=== PATIENT | male | born 1935 | race Caucasian/White ===

== ENCOUNTER 2019-12-16 09:32 | Inpatient (IN) | payer MEDICARE ==
[~2019-12-16] VITALS: Ht 172.7 cm; Wt 67.4 kg
[~2019-12-16 09:32] MED LIST: ALLO300T PO; ASPI-515 PO; ATOR40TA78 PO; CARV3.1212 PO; CHOL200024 PO; CLOP75TA52 PO; FERR325T18 PO; HYDROCHLOROTH12.5 MG PO; LEVO150T5 PO; LEVO200T5 PO; LISI-170 PO; NIAC500T9 PO; PANT40TA5 PO
[2019-12-16] MEDS ORDERED: VANCOMYCIN PER PHARMACY MC ONE (10:00)
[2019-12-16] MEDS ORDERED: SODIUM CHLORIDE FLUSH 10ML SYR IVF ONE (10:00)
[2019-12-16] MEDS ORDERED: VANCOMYCIN 1,200 MG in SODIUM CHLORIDE 0.9% 250 ML IV ONE (10:00)
--- NOTE | 2019-12-16 10:38 | NUR ---
lab to bedside to draw blood cultures, straight cath performed, pt tolerated well. laying in bed, respirations even and unlabored, no signs of distress. will continue to monitor, call light within reach.
--- NOTE | 2019-12-16 11:02 | NUR ---
ANNIE, , IN [facility]ENICE, ([phone]. OKAY TO GIVE UPDATES.
[2019-12-16 11:09] LABS: MICROSCOPIC AUTO
[2019-12-16 11:10] LABS: CULTURE INDICATED? NO
[2019-12-16] MEDS ORDERED: CARV6.2512 PO (11:24)
[2019-12-16] MEDS ORDERED: TAMS-11 PO (11:24)
[2019-12-16] MEDS ORDERED: ALLO300T PO (11:24)
[2019-12-16] MEDS ORDERED: ZOLP5TAB6 PO (11:24)
[2019-12-16] MEDS ORDERED: CLOP75TA PO (11:24)
[2019-12-16] MEDS ORDERED: ACETAMINOPHEN 325 MG TABLET PO PRN ×3 (11:30→19:30)
--- NOTE | 2019-12-16 11:43 | NUR ---
PT LAYING IN BED, RESPIRATIONS EVEN AND UNLABORED, NO SIGNS OF DISTRESS, WILL CONTINUE TO MONITOR.
--- NOTE | 2019-12-16 11:48 | NUR ---
REPORT GIVEN TO CRISTIAN COCHRNA.
[2019-12-16 12:00] LABS: INTERNATIONAL NORMALIZED RATIO 1.03 (0.93-1.1); PROTHROMBIN TIME 10.9 Seconds (9.6-11.5)
[2019-12-16 12:01] LABS: BASOPHILS # (AUTO) 0.03 x10^3/uL (0-0.1); BASOPHILS % (AUTO) 0 % (0-1); EOSINOPHILS % (AUTO) 0 % (1-7); LYMPHOCYTES # (AUTO) 1.35 x10^3/uL (1-3.4); LYMPHOCYTES % (AUTO) 14 % (22-44); MD NO; MEAN CORPUSCULAR HEMOGLOBIN 31.2 pg (27.5-34.5); MEAN CORPUSCULAR HGB CONC 33.1 g/dL (33.2-36.2); MEAN CORPUSCULAR VOLUME 94.2 fL (81-97); MEAN PLATELET VOLUME 8.1 fL (7.4-10.4); MONOCYTES # (AUTO) 0.77 x10^3/uL (0.2-0.8); MONOCYTES % (AUTO) 8 % (2-9); NEUTROPHILS # (AUTO) 7.71 x10^3/uL (1.8-6.8); NEUTROPHILS % (AUTO) 78 % (42-75); PLATELET COUNT 282 x10^3/uL (130-400); RED BLOOD COUNT 3.58 x10^6/uL (4.38-5.82); RED CELL DISTRIBUTION WIDTH 15.2 % (9.4-14.8)
[2019-12-16 12:06] LABS: ANION GAP 8 mmol/L (5-15); CALCIUM 8.3 mg/dL (8.5-10.1); CHLORIDE 103 mmol/L (98-107); CREATININE 0.56 mg/dL (0.7-1.3)
[2019-12-16 12:08] LABS: CREATINE KINASE, TOTAL 145 U/L (39-308)
[2019-12-16 12:10] VITALS: BP 160/63
[2019-12-16 12:46] VITALS: BP 153/55
[2019-12-16] MEDS ORDERED: MORPHINE SULFATE 4 MG/ML, 1ML IVPush PRN (14:30)
[2019-12-16] MEDS: DAPTOMYCIN 350 MG in SODIUM CHLORIDE 0.9% 100 ML IVPB SCH (14:35)
[2019-12-16] MEDS: HEPARIN 5,000 UNITS/ML, 1ML SQ SCH ×3 (14:37→23:57)
[2019-12-16] MEDS ORDERED: ONDANSETRON 2MG/ML, 2ML IV PRN ×2 (15:00→19:30)
[2019-12-16] MEDS ORDERED: PROMETHAZINE 25 MG/ML, 1ML IV PRN ×2 (15:00→19:30)
[2019-12-16] MEDS ORDERED: LABETALOL 5MG/ML, 20ML IV PRN ×2 (15:00→19:30)
[2019-12-16] MEDS ORDERED: OXYcodone 5 MG/5 ML ORAL.SOL UDC PO PRN ×2 (15:00→19:30)
[2019-12-16] MEDS ORDERED: hydrALAzine 20 MG/ML, 1ML IV PRN ×2 (15:00→19:30)
[2019-12-16] MEDS ORDERED: NEOSPORIN OINT, 15GM ONE (15:49)
[2019-12-16] MEDS ORDERED: FENTANYL PF 250 MCG/5ML ONE (16:44)
[2019-12-16] MEDS ORDERED: SUCCINYLCHOLINE 20 MG/ML, 10ML ONE (17:06)
[2019-12-16] MEDS ORDERED: CEFAZOLIN 1,000 MG ONE (17:06)
[2019-12-16] MEDS ORDERED: DEXAMETHASONE 4 MG/ML, 1ML ONE (17:06)
[2019-12-16] MEDS ORDERED: ROCURONIUM 10 MG/ML,10ML ONE (17:06)
[2019-12-16] MEDS ORDERED: PROPOFOL 10 MG/ML, 20ML ONE (17:06)
[2019-12-16] MEDS ORDERED: ONDANSETRON 2MG/ML, 2ML ONE (17:06)
[2019-12-16] MEDS ORDERED: VASOPRESSIN 20 UNIT/ML, 1ML ONE (17:22)
[2019-12-16] MEDS ORDERED: PROMETHAZINE 12.5 MG SUPP PR PRN (19:30)
[2019-12-16] MEDS ORDERED: ALBUTEROL SULFATE 2.5 MG/3 ML NPPB PRN (19:30)
[2019-12-16] MEDS ORDERED: ONDANSETRON ODT 8 MG PO PRN (19:30)
[2019-12-16] MEDS ORDERED: MIDAZOLAM 1 MG/ML, 2ML IV PRN (19:30)
[2019-12-16] MEDS ORDERED: HYDROmorphone 2 MG/ML, 1ML IVPush PRN (19:30)
[2019-12-16] MEDS ORDERED: DIAZEPAM 5 MG/ML, 2ML IVPush PRN (19:30)
[2019-12-16] MEDS ORDERED: EPHEDRINE 50 MG/ML, 1ML IVPush PRN (19:30)
[2019-12-16] MEDS ORDERED: MEPERIDINE/PF 25MG/ML,1ML IVPush PRN (19:30)
[2019-12-16] MEDS ORDERED: FENTANYL PF 100 MCG/2ML IV PRN (19:30)
[2019-12-16] MEDS ORDERED: HALOPERIDOL 5 MG/ML IV PRN (19:30)
[2019-12-16] MEDS ORDERED: OXYcodone 5 MG/5 ML ORAL.SOL UDC ONE (19:32)
[2019-12-16] MEDS ORDERED: FENTANYL PF 100 MCG/2ML ONE (19:32)
[2019-12-16] MEDS: FENTANYL PF 100 MCG/2ML IV PRN ×4 (19:36→19:55)
[2019-12-16] MEDS ORDERED: HYDROmorphone 1 MG/ML, 1ML INJ ONE (19:57)
[2019-12-16] MEDS: HYDROmorphone 2 MG/ML, 1ML IVPush PRN ×3 (20:01→20:16)
[2019-12-16 20:55] VITALS: BP 138/75
[2019-12-16] MEDS: LISINOPRIL 20 MG TABLET PO SCH (23:48)
[2019-12-16] MEDS: FERROUS SULFATE 325 MG TABLET PO SCH (23:49)
[2019-12-16] MEDS: NIACIN 500 MG TABLET.ER PO SCH (23:50)
[2019-12-16] MEDS: ATORVASTATIN 10 MG TABLET PO SCH (23:53)
[2019-12-16] MEDS: CARVEDILOL 3.125 MG TABLET PO SCH (23:53)
[2019-12-16] MEDS: ASPIRIN 81 MG TABLET EC PO SCH (23:54)
[2019-12-16] MEDS: ALLOPURINOL 300 MG TABLET PO SCH (23:54)
[2019-12-16] MEDS: CHOLECALCIFEROL 1,000 UNIT TABLET PO SCH (23:56)
[2019-12-17] VITALS (8 sets, daily range): BP systolic 62–146; BP diastolic 34–82
[2019-12-17] MEDS: HYDROcodone/APAP 5/325 TABLET PO PRN ×3 (00:23→20:31)
[2019-12-17 05:28] LABS: BASOPHILS # (AUTO) 0.01 x10^3/uL (0-0.1); BASOPHILS % (AUTO) 0 % (0-1); EOSINOPHILS % (AUTO) 0 % (1-7); LYMPHOCYTES # (AUTO) 0.74 x10^3/uL (1-3.4); LYMPHOCYTES % (AUTO) 9 % (22-44); MD NO; MEAN CORPUSCULAR HEMOGLOBIN 30.9 pg (27.5-34.5); MEAN CORPUSCULAR HGB CONC 32.7 g/dL (33.2-36.2); MEAN CORPUSCULAR VOLUME 94.6 fL (81-97); MEAN PLATELET VOLUME 7.4 fL (7.4-10.4); MONOCYTES # (AUTO) 0.53 x10^3/uL (0.2-0.8); MONOCYTES % (AUTO) 7 % (2-9); NEUTROPHILS # (AUTO) 6.77 x10^3/uL (1.8-6.8); NEUTROPHILS % (AUTO) 84 % (42-75); PLATELET COUNT 246 x10^3/uL (130-400); RED BLOOD COUNT 2.59 x10^6/uL (4.38-5.82); RED CELL DISTRIBUTION WIDTH 15.1 % (9.4-14.8)
[2019-12-17] MEDS: LEVOTHYROXINE 200 MCG TABLET PO SCH (06:40)
[2019-12-17] MEDS: NIACIN 500 MG TABLET.ER PO SCH ×2 (09:00→20:32)
[2019-12-17] MEDS ORDERED: TAMSULOSIN 0.4 MG CAP.ER.24H PO SCH (09:00)
[2019-12-17] MEDS: DOCUSATE 100 MG CAPSULE PO SCH ×2 (09:38→20:27)
[2019-12-17] MEDS: HYDROCHLOROTHIAZIDE 12.5 MG CAPSULE PO SCH (09:38)
[2019-12-17] MEDS: FERROUS SULFATE 325 MG TABLET PO SCH ×2 (09:38→20:28)
[2019-12-17] MEDS: LISINOPRIL 20 MG TABLET PO SCH ×2 (09:39→20:32)
[2019-12-17] MEDS: CLOPIDOGREL 75 MG TABLET PO SCH (09:39)
[2019-12-17] MEDS: CARVEDILOL 3.125 MG TABLET PO SCH ×2 (09:39→20:28)
[2019-12-17] MEDS: PANTOPRAZOLE 40MG TABLET PO SCH (09:39)
[2019-12-17] MEDS: CHOLECALCIFEROL 1,000 UNIT TABLET PO SCH ×2 (09:44→20:28)
[2019-12-17] MEDS: HEPARIN 5,000 UNITS/ML, 1ML SQ SCH ×2 (10:12→18:26)
[2019-12-17] MEDS: DAPTOMYCIN 350 MG in SODIUM CHLORIDE 0.9% 100 ML IVPB SCH (15:37)
[2019-12-17] MEDS: ATORVASTATIN 10 MG TABLET PO SCH (20:29)
[2019-12-17] MEDS: ALLOPURINOL 300 MG TABLET PO SCH (20:31)
[2019-12-17] MEDS: TAMSULOSIN 0.4 MG CAP.ER.24H PO SCH (20:31)
[2019-12-17] MEDS: ASPIRIN 81 MG TABLET EC PO SCH (20:31)
[2019-12-18 01:39] VITALS: BP 132/70
[2019-12-18] MEDS: HEPARIN 5,000 UNITS/ML, 1ML SQ SCH ×2 (02:01→09:52)
[2019-12-18] MEDS: HYDROcodone/APAP 5/325 TABLET PO PRN ×3 (04:38→19:57)
[2019-12-18] MEDS: LEVOTHYROXINE 200 MCG TABLET PO SCH (04:38)
[2019-12-18 05:57] LABS: BASOPHILS # (AUTO) 0.02 x10^3/uL (0-0.1); BASOPHILS % (AUTO) 0 % (0-1); EOSINOPHILS # (AUTO) 0.01 x10^3/uL (0-0.4); EOSINOPHILS % (AUTO) 0 % (1-7); LYMPHOCYTES # (AUTO) 1.21 x10^3/uL (1-3.4); LYMPHOCYTES % (AUTO) 19 % (22-44); MD NO; MEAN CORPUSCULAR HEMOGLOBIN 31.6 pg (27.5-34.5); MEAN CORPUSCULAR HGB CONC 33.2 g/dL (33.2-36.2); MEAN CORPUSCULAR VOLUME 95.2 fL (81-97); MEAN PLATELET VOLUME 7.4 fL (7.4-10.4); MONOCYTES # (AUTO) 0.72 x10^3/uL (0.2-0.8); MONOCYTES % (AUTO) 12 % (2-9); NEUTROPHILS % (AUTO) 69 % (42-75); PLATELET COUNT 251 x10^3/uL (130-400); RED BLOOD COUNT 2.43 x10^6/uL (4.38-5.82)
[2019-12-18 06:02] LABS: ANION GAP 8 mmol/L (5-15); CALCIUM 7.6 mg/dL (8.5-10.1); CHLORIDE 102 mmol/L (98-107); CREATININE 0.56 mg/dL (0.7-1.3)
[2019-12-18 07:13] VITALS: BP 139/56
[2019-12-18] MEDS: CLOPIDOGREL 75 MG TABLET PO SCH (08:02)
[2019-12-18] MEDS: FERROUS SULFATE 325 MG TABLET PO SCH ×2 (08:04→19:45)
[2019-12-18] MEDS: DOCUSATE 100 MG CAPSULE PO SCH ×2 (08:04→19:46)
[2019-12-18] MEDS: PANTOPRAZOLE 40MG TABLET PO SCH (08:05)
[2019-12-18] MEDS: LISINOPRIL 20 MG TABLET PO SCH ×2 (08:05→19:46)
[2019-12-18] MEDS: CARVEDILOL 3.125 MG TABLET PO SCH ×2 (08:05→19:46)
[2019-12-18] MEDS: NIACIN 500 MG TABLET.ER PO SCH ×2 (08:06→19:45)
[2019-12-18] MEDS: CHOLECALCIFEROL 1,000 UNIT TABLET PO SCH ×2 (08:06→19:48)
[2019-12-18] MEDS: HYDROCHLOROTHIAZIDE 12.5 MG CAPSULE PO SCH ×2 (08:06→08:08)
[2019-12-18] MEDS ORDERED: BISACODYL 10 MG SUPP PR PRN (10:30)
[2019-12-18] MEDS ORDERED: MAGNESIUM HYDROXIDE 8%, 30ML UDC PO PRN (10:30)
[2019-12-18] MEDS ORDERED: POLYETHYLENE GLYCOL 17 GM PACKET PO PRN (10:30)
[2019-12-18] MEDS: SODIUM CHLORIDE 0.9% 1,000 ML IV SCH (11:59)
[2019-12-18 12:25] VITALS: BP 100/62
[2019-12-18] MEDS: DAPTOMYCIN 350 MG in SODIUM CHLORIDE 0.9% 100 ML IVPB SCH (14:50)
[2019-12-18] MEDS: ALLOPURINOL 300 MG TABLET PO SCH (19:45)
[2019-12-18] MEDS: ATORVASTATIN 10 MG TABLET PO SCH (19:45)
[2019-12-18] MEDS: TAMSULOSIN 0.4 MG CAP.ER.24H PO SCH (19:45)
[2019-12-18] MEDS: ASPIRIN 81 MG TABLET EC PO SCH (19:45)
[2019-12-18 20:01] VITALS: BP 134/55
[2019-12-19] MEDS: HYDROcodone/APAP 5/325 TABLET PO PRN ×2 (00:58→20:55)
[2019-12-19] MEDS: SODIUM CHLORIDE 0.9% 1,000 ML IV SCH ×3 (00:59→20:41)
[2019-12-19 01:01] VITALS: BP 119/58
[2019-12-19] MEDS: LEVOTHYROXINE 200 MCG TABLET PO SCH (04:59)
[2019-12-19 06:34] LABS: BASOPHILS # (AUTO) 0.03 x10^3/uL (0-0.1); BASOPHILS % (AUTO) 1 % (0-1); EOSINOPHILS # (AUTO) 0.11 x10^3/uL (0-0.4); EOSINOPHILS % (AUTO) 2 % (1-7); LYMPHOCYTES # (AUTO) 1.24 x10^3/uL (1-3.4); LYMPHOCYTES % (AUTO) 22 % (22-44); MD NO; MEAN CORPUSCULAR HEMOGLOBIN 31.2 pg (27.5-34.5); MEAN CORPUSCULAR VOLUME 94.5 fL (81-97); MEAN PLATELET VOLUME 7.4 fL (7.4-10.4); MONOCYTES # (AUTO) 0.66 x10^3/uL (0.2-0.8); MONOCYTES % (AUTO) 12 % (2-9); NEUTROPHILS # (AUTO) 3.51 x10^3/uL (1.8-6.8); NEUTROPHILS % (AUTO) 63 % (42-75); PLATELET COUNT 297 x10^3/uL (130-400); RED BLOOD COUNT 2.49 x10^6/uL (4.38-5.82); RED CELL DISTRIBUTION WIDTH 14.9 % (9.4-14.8)
[2019-12-19 06:36] LABS: ANION GAP 7 mmol/L (5-15); CHLORIDE 106 mmol/L (98-107); CREATININE 0.54 mg/dL (0.7-1.3)
[2019-12-19 07:15] VITALS: BP 165/62
[2019-12-19] MEDS: MAGNESIUM HYDROXIDE 8%, 30ML UDC PO SCH (08:32)
[2019-12-19] MEDS: POLYETHYLENE GLYCOL 17 GM PACKET NG SCH (08:32)
[2019-12-19] MEDS: LISINOPRIL 20 MG TABLET PO SCH ×2 (08:32→20:40)
[2019-12-19] MEDS: NIACIN 500 MG TABLET.ER PO SCH ×2 (08:32→21:00)
[2019-12-19] MEDS: CARVEDILOL 3.125 MG TABLET PO SCH ×2 (08:32→20:39)
[2019-12-19] MEDS: DOCUSATE 100 MG CAPSULE PO SCH ×2 (08:32→20:39)
[2019-12-19] MEDS: CLOPIDOGREL 75 MG TABLET PO SCH (08:33)
[2019-12-19] MEDS: PANTOPRAZOLE 40MG TABLET PO SCH (08:33)
[2019-12-19] MEDS: FERROUS SULFATE 325 MG TABLET PO SCH ×2 (08:33→20:39)
[2019-12-19] MEDS: CHOLECALCIFEROL 1,000 UNIT TABLET PO SCH ×2 (08:33→21:00)
[2019-12-19] MEDS: DAPTOMYCIN 350 MG in SODIUM CHLORIDE 0.9% 100 ML IVPB SCH (14:45)
[2019-12-19 15:46] VITALS: BP 146/54
[2019-12-19 20:07] VITALS: BP 117/54
[2019-12-19] MEDS: ASPIRIN 81 MG TABLET EC PO SCH (20:38)
[2019-12-19] MEDS: ATORVASTATIN 10 MG TABLET PO SCH (20:40)
[2019-12-19] MEDS: ALLOPURINOL 300 MG TABLET PO SCH (20:41)
[2019-12-19] MEDS: TAMSULOSIN 0.4 MG CAP.ER.24H PO SCH (20:41)
[2019-12-20 02:09] VITALS: BP 129/55
[2019-12-20] MEDS: LEVOTHYROXINE 200 MCG TABLET PO SCH (05:00)
[2019-12-20 05:55] LABS: ANION GAP 9 mmol/L (5-15); CALCIUM 7.8 mg/dL (8.5-10.1); CHLORIDE 109 mmol/L (98-107); CREATININE 0.41 mg/dL (0.7-1.3)
[2019-12-20 05:58] LABS: MEAN CORPUSCULAR HEMOGLOBIN 30.9 pg (27.5-34.5); MEAN CORPUSCULAR HGB CONC 33.1 g/dL (33.2-36.2); MEAN CORPUSCULAR VOLUME 93.5 fL (81-97); MEAN PLATELET VOLUME 7.6 fL (7.4-10.4); PLATELET COUNT 316 x10^3/uL (130-400); RED BLOOD COUNT 2.42 x10^6/uL (4.38-5.82); RED CELL DISTRIBUTION WIDTH 15.3 % (9.4-14.8)
[2019-12-20 06:19] LABS: MD MORPH REVIEW ONLY
[2019-12-20 06:20] LABS: BASOPHILS # (AUTO) 0.04 x10^3/uL (0-0.1); BASOPHILS % (AUTO) 1 % (0-1); ECHINOCYTES 1+; EOSINOPHILS # (AUTO) 0.13 x10^3/uL (0-0.4); EOSINOPHILS % (AUTO) 2 % (1-7); LYMPHOCYTES # (AUTO) 1.09 x10^3/uL (1-3.4); LYMPHOCYTES % (AUTO) 21 % (22-44); MONOCYTES # (AUTO) 0.56 x10^3/uL (0.2-0.8); MONOCYTES % (AUTO) 10 % (2-9); NEUTROPHILS # (AUTO) 3.51 x10^3/uL (1.8-6.8); NEUTROPHILS % (AUTO) 66 % (42-75)
[2019-12-20 06:21] LABS: OVALOCYTES 1+; SCHISTOCYTES 1+
[2019-12-20 06:22] LABS: ACANTHOCYTES 2+
[2019-12-20 06:23] LABS: <PLATELET ESTIMATE> ADEQUATE; <PLT MORPHOLOGY> NORMAL PLT MORPH
[2019-12-20 06:40] LABS: OCCULT BLOOD NEGATIVE (NEGATIVE)
[2019-12-20 08:00] VITALS: BP 158/68
[2019-12-20] MEDS: SODIUM CHLORIDE 0.9% 1,000 ML IV SCH (08:13)
[2019-12-20] MEDS: MAGNESIUM HYDROXIDE 8%, 30ML UDC PO SCH (08:13)
[2019-12-20] MEDS: POLYETHYLENE GLYCOL 17 GM PACKET NG SCH (08:13)
[2019-12-20] MEDS: DOCUSATE 100 MG CAPSULE PO SCH (08:13)
[2019-12-20] MEDS: NIACIN 500 MG TABLET.ER PO SCH (08:20)
[2019-12-20] MEDS: FERROUS SULFATE 325 MG TABLET PO SCH (08:20)
[2019-12-20] MEDS: PANTOPRAZOLE 40MG TABLET PO SCH (08:20)
[2019-12-20] MEDS: CLOPIDOGREL 75 MG TABLET PO SCH (08:20)
[2019-12-20] MEDS: LISINOPRIL 20 MG TABLET PO SCH (08:21)
[2019-12-20] MEDS: CHOLECALCIFEROL 1,000 UNIT TABLET PO SCH (08:21)
[2019-12-20] MEDS: CARVEDILOL 3.125 MG TABLET PO SCH (08:21)
[2019-12-20] MEDS ORDERED: HYDR-3237 PO (11:28)
[2019-12-20] MEDS ORDERED: DOCU100C33 PO (11:28)
[2019-12-20] MEDS ORDERED: ACET325T26 PO (11:28)
[2019-12-20] MEDS ORDERED: LINE600T15 PO (11:41)
[2019-12-20 13:05] VITALS: BP 148/66
== END 2019-12-20 13:05 | DRG 481 ==
LOC: ED 10:57 → EDIP 11:02 → 4NE 12:05
PROVIDERS: ADMIT Internal Medicine Infectious Disease; ATTEND Hospitalist
PROC: 0QS736Z Reposition Left Upper Femur with Intramedullary Internal Fixation Device, Percutaneous Approach (ICD-10-PCS; principal; 2019-12-17)
PROC: 0X9K0ZZ Drainage of Left Hand, Open Approach (ICD-10-PCS; 2019-12-17)
DX: S72.142A Displaced intertrochanteric fracture of left femur, initial encounter for closed fracture (principal); D62 Acute posthemorrhagic anemia; L03.012 Cellulitis of left finger; W18.2XXA Fall in (into) shower or empty bathtub, initial encounter; E78.5 Hyperlipidemia, unspecified; E03.9 Hypothyroidism, unspecified; I10 Essential (primary) hypertension; E78.00 Pure hypercholesterolemia, unspecified; G47.00 Insomnia, unspecified; M10.9 Gout, unspecified; I25.10 Atherosclerotic heart disease of native coronary artery without angina pectoris; N40.0 Benign prostatic hyperplasia without lower urinary tract symptoms; I73.9 Peripheral vascular disease, unspecified; D64.9 Anemia, unspecified; Z95.1 Presence of aortocoronary bypass graft; Z79.899 Other long term (current) drug therapy
CPT/HCPCS: 36415; 76000; 80048; 81001; 82272; 82550; 82728; 83540; 83550; 83605; 84443; 85018; 85025; 85610; 87040; 87070; 87075; 87077; 87186; 87205; 93005; C1713; G0378; J0690; J0878; J1100; J1170; J1644; J2405; J2704; J3010; J0330; J2270; J7030